=== PATIENT | female | born 1985 | race Two or more races ===

== ENCOUNTER 2017-06-29 12:28 | Emergency (ER) | payer OTHER ==
[2017-06-29 15:08] LABS: CALCIUM 9.1 mg/dL (8.5-10.1); CARBON DIOXIDE 29.4 mmol/L (21-32); CHLORIDE SERUM 105 mmol/L (98-107); CREATININE SERUM 0.6 mg/dL (0.6-1.0); GFR1 > 60 mL/min; GLUCOSE SERUM 83 mg/dL (74-106); POTASSIUM SERUM 4.1 mmol/L (3.5-5.1); SODIUM SERUM 142 mmol/L (136-145)
[2017-06-29 15:20] LABS: ALBUMIN 4.2 g/dL (3.4-5.0); ALKALINE PHOSPHATASE 104 U/L (46-116); ALT/SGPT 25 U/L (14-59); AST/SGOT 15 U/L (15-37); BILIRUBIN TOTAL 0.2 mg/dL (0.20-1.00); T4(THYROXINE) 9.6 ug/dL (4.7-13.3); TOTAL PROTEIN, SERUM 8.1 g/dL (6.4-8.2)
[2017-06-29 15:53] LABS: BASOPHIL % 0.5 % (0-2); PLATELET COUNT 222 x10^3mcL (130-400); RED CELL DISTRIBUTION WIDTH 11.5 % (11.5-14.5)
[2017-06-29 16:22] VITALS: BP 108/76
== END 2017-06-29 16:22 | disposition home or self-care (01) ==
LOC: ED 12:28
PROVIDERS: Emergency Medicine
DX: R00.2 Palpitations (principal); R07.89 Other chest pain
CPT/HCPCS: 36415; Q0092